=== PATIENT | male | born 1990 | race American Indian/Alaskan Native ===

== ENCOUNTER 2016-10-08 10:20 | Emergency (ER) | payer SELFPAY ==
[2016-10-08 10:55] VITALS: BP 148/107
[2016-10-08 11:17] LABS: Basophils % (Auto) 0.4 % (0.0-1.8); Eosinophils % (Auto) 1.3 % (0.0-4.3); Hematocrit 42.9 % (35.5-45.6); Mean Corpuscular HGB Conc 33 % (32-34); Mean Corpuscular Hemoglobin 27 pg (28-32); Mean Corpuscular Volume 82 fl (84-94); Platelet Count 288 K/mm3 (140-440); Red Blood Count 5.26 M/mm3 (3.65-5.03); Red Cell Distribution Width 14.9 % (13.2-15.2); White Blood Count 8.1 K/mm3 (4.5-11.0)
[2016-10-08 11:37] LABS: Alanine Aminotransferase 12 units/L (7-56); Albumin 4.6 g/dL (3.9-5); Albumin/Globulin Ratio 1.6 %; Alkaline Phosphatase 54 units/L (35-129); Anion Gap 19 mmol/L; BUN/Creatinine Ratio 11.53; Blood Urea Nitrogen 15 mg/dL (9-20); Calcium 9.1 mg/dL (8.4-10.2); Carbon Dioxide 24 mmol/L (22-30); Chloride 103.8 mmol/L (98-107); Glucose 106 mg/dL (75-100); Lipase 24 units/L (13-60); Potassium 4.7 mmol/L (3.6-5.0); Sodium 142 mmol/L (137-145); Total Protein 7.4 g/dL (6.3-8.2)
[2016-10-08 13:22] LABS: Bilirubin,Urine NEG (Negative); Blood,Urine LG (Negative); Ketones,Urine NEG (Negative); Leukocyte Esterase,Urine NEG (Negative); Mucus,Urine 3+ /HPF; Nitrite,Urine NEG (Negative); Urobilinogen,Urine < 2.0 mg/dL (<2.0)
[2016-10-08 13:23] LABS: RBC,Urine > 182.0 /HPF (0.0-6.0)
--- NOTE | 2016-10-10 01:26 | ED Elopement Review ---
ED Pt Elopement review - Results review Lab results: Laboratory Tests 10/08/16 10/08/16 10/08/16 11:03 11:03 12:46 WBC 8.1 RBC 5.26 H Hgb 14.0 Hct 42.9 MCV 82 L MCH 27 L MCHC 33 RDW 14.9 Plt Count 288 Lymph % (Auto) 31.6 Kerr % (Auto) 5.4 Eos % (Auto) 1.3 Baso % (Auto) 0.4 Lymph # 2.5 Kerr # 0.4 Eos # 0.1 Baso # 0.0 Seg Neutrophils % 61.3 Seg Neutrophils # 4.9 Sodium 142 Potassium 4.7 Chloride 103.8 Carbon Dioxide 24 Anion Gap 19 BUN 15 Creatinine 1.3 Estimated GFR > 60 BUN/Creatinine Ratio 11.53 Glucose 106 H Calcium 9.1 Total Bilirubin 0.40 AST 14 ALT 12 Alkaline Phosphatase 54 Total Protein 7.4 Albumin 4.6 Albumin/Globulin Ratio 1.6 Lipase 24 Urine Color Yellow Urine Turbidity Clear Urine pH 6.0 Ur Specific [place] 1.017 Urine Protein 30 mg/dl Urine Glucose (UA) Neg Urine Ketones Neg Urine Blood Lg Urine Nitrite Neg Urine Bilirubin Neg Urine Urobilinogen < 2.0 Ur Leukocyte Esterase Neg Urine WBC (Auto) 9.0 H Urine RBC (Auto) > 182.0 Urine Mucus 3+ - Call Back decision Pt Call Back Decision: Pt to F/U with PMD (blood and wbc in urine, could be infection or kidney stones. needs f/u with pmd, urology, or may return to ed if sx continue)
== END 2016-10-08 12:47 | disposition left against medical advice (07) ==
LOC: ED 10:20
DX: R10.9 Unspecified abdominal pain (principal); Z53.21 Procedure and treatment not carried out due to patient leaving prior to being seen by health care provider
CPT/HCPCS: 36415; 80053; 81001; 83690; 85025